=== PATIENT | female | born 1945 | race Hispanic/Latino ===

== ENCOUNTER 2018-04-11 10:07 | Emergency (ER) | payer MEDICARE, OTHER ==
[~2018-04-11] VITALS: Ht 157.5 cm; Wt 77.1 kg
[~2018-04-11 10:07] MED LIST: CHLORDIAZEPOXIDE; LEVOTHYROXINE50 MCG PO; LIMBITROL PO; LIPITOR20 MG PO; ZYRTEC; [UNRECOGNIZED DRUG - OTHER] PO
== END 2018-04-11 12:51 | disposition home or self-care (01) ==
LOC: FSED 10:07
DX: M54.2 Cervicalgia (principal); M62.838 Other muscle spasm; R03.0 Elevated blood-pressure reading, without diagnosis of hypertension; E03.9 Hypothyroidism, unspecified; E78.5 Hyperlipidemia, unspecified; F32.9 Major depressive disorder, single episode, unspecified
CPT/HCPCS: 99282

== ENCOUNTER 2019-07-19 19:41 | Emergency (ER) | payer MEDICARE, OTHER ==
[~2019-07-19] VITALS: Ht 157.5 cm; Wt 77.1 kg
--- NOTE | 2019-07-19 19:53 | NUR ---
PT TO CT ON ARRIVAL TO R/U CVA
--- NOTE | 2019-07-19 21:05 | Diagnostic Imaging Report ---
EXAMINATION: Head CT without contrast. HISTORY:Left facial droop. COMPARISON:CT brain from 03/12/2011. TECHNIQUE: Multidetector axial images were obtained from the foramen magnum to the vertex without contrast. The images were reconstructed using brain and bone algorithms. Thin section brain images were reformatted into coronal and sagittal planes. Dose modulation, iterative reconstruction, and/or weight based adjustment of the mA/kV was utilized to reduce the radiation dose to as low as reasonably achievable. Intravenous contrast: None IMAGE QUALITY: Acceptable. FINDINGS: Skull/scalp: No lytic or blastic. lesions. No surgical changes. Parenchyma: Nonspecific few, scattered supratentorial white matter hypodensity are likely related to small vessel ischemic changes. No acute hemorrhage, mass or acute major vascular territorial infarct. Arteries: No density suggestive of thrombosis. Dural sinuses: No abnormal density suggestive of thrombosis. Ventricles: No hydrocephalus or displacement. Extra-axial spaces: No abnormal density. Brain volume: Normal for age. Craniocervical junction: No mass, Chiari malformation, or basilar invagination. Sella: No mass. Paranasal/mastoid sinuses: Imaged portions unremarkable. IMPRESSION: No acute intracranial abnormality. Mild supratentorial white matter microvascular ischemic changes and mild generalized cerebral volume loss. Signed by: Dr. Abi Cardenas M.D. on 07/19/2019 9:01 PM
== END 2019-07-19 22:46 | disposition home or self-care (01) ==
LOC: ER 19:41
DX: G51.0 Bell's palsy (principal)
CPT/HCPCS: 70450; 99283

== ENCOUNTER → 2022-10-22 | Outpatient (CLI) | payer MEDICARE | LOC: CT 13:55 | PROVIDERS: ATTEND Family Medicine | DX: R05.3 Chronic cough (principal); R07.9 Chest pain, unspecified; Z77.22 Contact with and (suspected) exposure to environmental tobacco smoke (acute) (chronic) | CPT/HCPCS: 71250 ==